=== PATIENT | male | born 1985 | race African-American/Black ===

== ENCOUNTER 2017-08-07 13:58 | Emergency (ER) | payer MEDICAID ==
[~2017-08-07] VITALS: Ht 180.3 cm; Wt 113.4 kg
[2017-08-07 14:54] VITALS: BP 146/79
[2017-08-07] MEDS ORDERED: IBUPROFEN 800 MG TAB PO ONE (15:30)
== END 2017-08-07 15:48 | disposition home or self-care (01) ==
LOC: ER 13:58
DX: S39.012A Strain of muscle, fascia and tendon of lower back, initial encounter (principal); S46.912A Strain of unspecified muscle, fascia and tendon at shoulder and upper arm level, left arm, initial encounter; V43.52XA Car driver injured in collision with other type car in traffic accident, initial encounter; Y93.89 Activity, other specified; Y92.89 Other specified places as the place of occurrence of the external cause; Y99.8 Other external cause status
CPT/HCPCS: 72100; 73030